=== PATIENT | female | born 1980 | race Caucasian/White ===

== ENCOUNTER 2022-01-14 20:01 | Emergency (ER) | payer OTHER ==
[2022-01-14 20:40] LABS: HEMOGLOBIN 14.6 gm/dl (12.3-15.3); RED BLOOD COUNT 4.91 M/UL (4.00-5.10); WHITE BLOOD COUNT 13.7 K/UL (4.5-11.0)
[2022-01-14 21:15] LABS: BUN/CREATININE RATIO 22 (0-10)
== END 2022-01-14 21:12 | disposition left against medical advice (07) ==
LOC: ER1 20:01
PROVIDERS: Nurse Practitioner
DX: R06.02 Shortness of breath (principal); Z20.822 Contact with and (suspected) exposure to COVID-19
CPT/HCPCS: 0240U; 71045; 80053; 81001; 82550; 82553; 83874; 84484; 85025; 93005; 99283